=== PATIENT | female | born 1940 | race Caucasian/White ===

== ENCOUNTER → 2016-07-29 | Outpatient (REF) | payer MEDICARE ==
[2016-07-29 14:12] LABS: MICROSCOPIC INDICATED? MAN YES (NO)
[2016-07-29 14:13] LABS: BACTERIA, URINE NONE SEEN; HYALINE CAST, URINE NONE SEEN /lpf (0-1); MICROSCOPIC EXAM PERFORMED; SQUAMOUS EPITHELIAL CELL URINE SMALL AMOUNT /hpf (SMALL AMT); WBC, URINE NONE SEEN /hpf (0-3)
== END ==
LOC: M LAB REF 13:01
PROVIDERS: ATTEND Internal Medicine
DX: R31.9 Hematuria, unspecified (principal)

== ENCOUNTER → 2016-10-07 | Outpatient (CLI) | payer MEDICARE ==
--- NOTE | 2016-10-07 09:20 | REPMRS ---
Patient History The patient states she had a clinical breast exam in Patient is postmenopausal. Family history of colorectal cancer in mother at age 50 or over. Digital Woman Screen Mammo: October 07, 2016 - Exam #: [id number] Bilateral CC and MLO view(s) were taken. Technologist: Amber Strauss, Technologist Prior study comparison: September 03, 2015, digital woman screen mammo performed at [facility]. September 12, 2013, bilateral digital mammo screening bilat, performed at [facility]. FINDINGS: There are scattered fibroglandular densities. There has been no change in the appearance of the mammogram from the prior studies. There is a mild amount of residual fibroglandular tissue which is fairly symmetric. There is no interval development of dominant mass, architectural distortion, or clustered microcalcification suggestive of malignancy. ASSESSMENT: BI-RADS/ACR category 1 mammogram. Negative. Recommendation Routine screening mammogram in 1 year (for women over age 40). This mammogram was interpreted with the aid of an FDA-approved computer-aided dectection system. Electronically Signed By: Garcia Hill MD 10/07/16 0981
== END ==
LOC: M WHC 08:00
PROVIDERS: ATTEND Internal Medicine
DX: Z12.31 Encounter for screening mammogram for malignant neoplasm of breast (principal); Z78.0 Asymptomatic menopausal state

== ENCOUNTER 2017-01-24 09:16 | Outpatient (CLI) | payer MEDICARE ==
[~2017-01-24] VITALS: Ht 162.6 cm; Wt 72.6 kg
[~2017-01-24 09:16] MED LIST: ASPI1TAB PO; LISI-542 PO; PRAV20TA2 PO; SUPECAP24 PO; VITA1CAP7 PO
[2017-01-24] MEDS ORDERED: NS 1,000 ML IV ONE (09:30)
[2017-01-24] MEDS ORDERED: PROPOFOL 200 MG/20 ML VIAL As Ordered ONE (10:40)
--- NOTE | 2017-01-24 11:06 | ROOR ---
Patient Name: Tonya Akins Procedure Date: 01/24/2017 10:38 AM Date of : 1940 Age: 76 Room: [facility] Gender: Female Note Status: Finalized Procedure: Total Colonoscopy to cecum + Bx. Indications: Colon cancer screening in patient at increased risk: Colorectal cancer in mother Providers: Carson Lanier MD Referring MD: Hannah CHÁVEZ MD Requesting Provider: Medicines: Monitored Anesthesia Care Complications: No immediate complications. Procedure: Pre-Anesthesia Assessment: - The heart rate, respiratory rate, oxygen saturations, blood pressure, adequacy of pulmonary ventilation, and response to care were monitored throughout the procedure. The Colonoscope was introduced through the anus and advanced to the cecum, identified by appendiceal orifice and ileocecal valve. The colonoscopy was performed without difficulty. The patient tolerated the procedure well. The quality of the bowel preparation was excellent. Findings: The perianal and digital rectal examinations were normal. Non-bleeding internal hemorrhoids were found during retroflexion. The hemorrhoids were small and Grade I (internal hemorrhoids that do not prolapse). A localized area of mildly congested mucosa was found appendiceal orifice. Biopsies were taken with a cold forceps for histology. The exam was otherwise without abnormality on direct and retroflexion views. Impression: - Non-bleeding internal hemorrhoids. - Congested mucosa at the appendiceal orifice. Biopsied. - The examination was otherwise normal on direct and retroflexion views. - The exam was otherwise normal to the cecum. Recommendation: - Patient has a contact number available for emergencies. The signs and symptoms of potential delayed complications were discussed with the patient. Return to normal activities tomorrow. Written discharge instructions were provided to the patient. - High fiber diet. - Discharge patient to home. - Continue present medications. - Await pathology results. - Telephone GI clinic for pathology results in 1 week. - Repeat colonoscopy for symptoms only. - Return to referring physician. - Check Portal Online for Path Results.([email or web address] - The findings and recommendations were discussed with the patient's family. Carson Lanier MD Carson Lanier MD 01/24/2017 11:05:59 AM This report has been signed electronically. Number of Addenda: 0 Note Initiated On: 01/24/2017 10:38 AM Estimated Blood Loss: Estimated blood loss: none.
[2017-01-24 11:31] VITALS: BP 152/93
== END 2017-01-24 11:50 | disposition home or self-care (01) ==
LOC: M OPP 09:16
PROVIDERS: ATTEND Internal Medicine Gastroenterology
DX: Z12.11 Encounter for screening for malignant neoplasm of colon (principal); Z80.0 Family history of malignant neoplasm of digestive organs; K64.0 First degree hemorrhoids; K63.5 Polyp of colon; I25.10 Atherosclerotic heart disease of native coronary artery without angina pectoris; Z95.5 Presence of coronary angioplasty implant and graft; K57.30 Diverticulosis of large intestine without perforation or abscess without bleeding; M17.9 Osteoarthritis of knee, unspecified; Z79.82 Long term (current) use of aspirin; Z79.899 Other long term (current) drug therapy

== ENCOUNTER 2017-06-25 08:56 | Emergency (ER) | payer MEDICARE ==
[2017-06-25] MEDS ORDERED: MOXIFLOXACIN 400 MG TAB PO (09:45)
== END 2017-06-25 09:52 | disposition home or self-care (01) ==
LOC: M ED 08:56
DX: J20.9 Acute bronchitis, unspecified (principal); Z87.01 Personal history of pneumonia (recurrent); Z95.5 Presence of coronary angioplasty implant and graft; Z79.82 Long term (current) use of aspirin; Z79.899 Other long term (current) drug therapy
CPT/HCPCS: 71046

== ENCOUNTER → 2018-01-02 | Outpatient (CLI) | payer MEDICARE | LOC: M WHC 13:40 | DX: M85.9 Disorder of bone density and structure, unspecified (principal) | CPT/HCPCS: 77080 ==

== ENCOUNTER 2018-02-02 06:36 | Day surgery (SDC) | payer MEDICARE ==
[2018-02-02] MEDS ORDERED: fentaNYL 100 MCG/2 ML INJECTION (J3010) As Ordered (07:00)
[2018-02-02] MEDS ORDERED: ONDANSETRON 4MG/2ML VIAL (J2405) As Ordered (07:01)
[2018-02-02] MEDS ORDERED: MIDAZOLAM INJ 2 MG/2 ML VIAL (J2250) As Ordered (07:01)
[2018-02-02] MEDS: TROPICAMIDE 1% OPHTH SOLN 2ML OS (07:08)
[2018-02-02] MEDS: OFLOXACIN 0.3 % (OCUFLOX) OPTH SOL 5ML OS (07:08)
[2018-02-02] MEDS: PROPARACAINE 0.5% OPHTH SOL 15ML OS (07:08)
[2018-02-02] MEDS: PHENYLEPHRINE 2.5% OPHTH SOL 2ML OS (07:08)
[2018-02-02] MEDS: BALANCED SALT IRRIGATION SOLUTION 500ML BAG (FOR OR EYE MACHINE) As Ordered (07:55)
[2018-02-02] MEDS: POVIDONE-IODINE 5% OPHTH PREP SOL 30ML As Ordered (07:55)
[2018-02-02] MEDS: DUOVISC (0.50ML VISCOAT/0.55ML PROVISC) OPHTH KIT As Ordered (07:56)
[2018-02-02] MEDS: LIDOCAINE 0.75%/EPINEPHRINE 0.025% IN BSS 1ML SYR INTRACAMERAL (OR ONLY) As Ordered ×2 (07:56→08:02)
[2018-02-02] MEDS: CEFUROXIME 1MG/0.1ML INTRACAMERAL INJ As Ordered (07:56)
== END 2018-02-02 09:08 | disposition home or self-care (01) ==
LOC: M SDC 06:36
DX: H25.12 Age-related nuclear cataract, left eye (principal); I25.10 Atherosclerotic heart disease of native coronary artery without angina pectoris; Z98.61 Coronary angioplasty status; Z79.899 Other long term (current) drug therapy
CPT/HCPCS: 66984

== ENCOUNTER 2018-02-03 21:24 | Observation (INO) | payer MEDICARE ==
[2018-02-03] MEDS: NS 1,000 ML IV (22:34)
[2018-02-03] MEDS: ONDANSETRON 4MG/2ML VIAL (J2405) IV (22:34)
[2018-02-03] MEDS: MORPHINE 2 MG/ML 1ML SYRINGE (J2270) IV (22:35)
[2018-02-03 22:47] LABS: BASO % 0.3 % (0.0-1.0); HEMATOCRIT 39.9 % (36.0-47.0); HEMOGLOBIN 13.8 g/dl (12.0-15.5); IMMATURE GRANULOCYTE % 0.4 % (0-3.0); LYMPH # 0.9 10^3/uL (1.5-4.5); LYMPH % 8.7 % (24.0-44.0); MEAN CORPUSCULAR HEMOGLOBIN 29.5 pg (27.0-33.0); MEAN CORPUSCULAR HGB CONC 34.6 g/dl (32.0-36.5); MEAN CORPUSCULAR VOLUME 85.3 fl (80.0-96.0); MONO # 0.2 10^3/uL (0.0-0.8); MONO % 2.1 % (0.0-5.0); NEUTROPHILS # 9.5 10^3/uL (1.8-7.7); NEUTROPHILS % 88.5 % (36.0-66.0); PLATELET COUNT, AUTOMATED 154 10^3/uL (150-450); RED BLOOD COUNT 4.68 10^6/uL (4.00-5.40); RED CELL DISTRIBUTION WIDTH 12.5 % (11.5-14.5); WHITE BLOOD COUNT 10.7 10^3/uL (4.0-10.0)
[2018-02-03 23:15] LABS: INR 1.01; PROTHROMBIN TIME 13.4 SECONDS (12.1-14.4)
[2018-02-03 23:16] LABS: PARTIAL THROMBOPLASTIN TIME 28.7 SECONDS (25.4-37.6)
[2018-02-03 23:23] LABS: ALBUMIN 3.9 GM/DL (3.2-5.2); ALKALINE PHOSPHATASE 56 U/L (45-117); ALT/SGPT 16 U/L (12-78); ANION GAP 11 MEQ/L (8-16); AST/SGOT 16 U/L (7-37); BILIRUBIN,DIRECT 0.2 MG/DL (0.0-0.2); BILIRUBIN,TOTAL 0.6 MG/DL (0.2-1.0); BLOOD UREA NITROGEN 23 MG/DL (7-18); CALCIUM LEVEL 8.9 MG/DL (8.8-10.2); CARBON DIOXIDE LEVEL 22 MEQ/L (21-32); CHLORIDE LEVEL 107 MEQ/L (98-107); CK-MB VALUE MASS 1.8 NG/ML (<3.6); CPK CREATINE PHOSPHOKINASE 116 U/L (26-192); CREATININE FOR GFR 0.95 MG/DL (0.55-1.30); GLOMERULAR FILTRATION RATE > 60.0 (>39); GLUCOSE, FASTING 197 MG/DL (70-100); LIPASE 155 U/L (73-393); MB/CK RELATIVE INDEX 1.55 (< OR =4); POTASSIUM SERUM 3.9 MEQ/L (3.5-5.1); SODIUM LEVEL 140 MEQ/L (136-145); TOTAL PROTEIN 7.8 GM/DL (6.4-8.2); TROPONIN I < 0.02 NG/ML (< 0.10)
[2018-02-03] MEDS: METOCLOPRAMIDE INJ 10MG/2ML VIAL (J2765) IV (23:30)
[2018-02-04] MEDS: MORPHINE 2 MG/ML 1ML SYRINGE (J2270) IV (00:01)
[2018-02-04] MEDS ORDERED: ISOVUE-370 76% 100ML VIAL (Q9967) As Ordered (00:56)
[2018-02-04] MEDS ORDERED: PERCOCET 5MG/325MG TAB PO (01:30)
[2018-02-04] MEDS ORDERED: MORPHINE 4 MG/ML 1ML VIAL/SYRINGE (J2270) IV (01:30)
[2018-02-04] MEDS ORDERED: BISACODYL 5 MG TAB PO (01:30)
[2018-02-04] MEDS ORDERED: ONDANSETRON 4MG/2ML VIAL (J2405) IV (01:30)
[2018-02-04] MEDS: NS 1,000 ML IV ×2 (03:32→12:03)
[2018-02-04] MEDS: PANTOPRAZOLE 40MG INJ (PROTONIX) (C9113) IV ×2 (03:32→20:10)
[2018-02-04] MEDS: PRAVASTATIN 20 MG TAB PO ×2 (03:33→20:10)
[2018-02-04] MEDS: LISINOPRIL 5 MG TAB PO ×2 (03:33→20:12)
[2018-02-04] MEDS: VITAMIN D 1,000 INTERNATIONAL UNITS TABLET PO ×2 (03:34→20:10)
[2018-02-04] MEDS: HEPARIN SOD (PORCINE) 5000 UNITS/ML VIAL SC ×3 (06:26→21:40)
[2018-02-04] MEDS: ACETAMINOPHEN TAB 650MG DOSE (2X325MG) PO (06:39)
[2018-02-04] MEDS: prednisoLONE ACET 1% OPHTH SUSP 5ML OS ×2 (08:38→20:12)
[2018-02-04] MEDS: [UNRECOGNIZED DRUG - OTHER] OS ×2 (12:03→20:14)
[2018-02-04] MEDS: BESIVANCE 0.6% OS ×3 (12:03→20:12)
[2018-02-05] MEDS: HEPARIN SOD (PORCINE) 5000 UNITS/ML VIAL SC (05:47)
== END 2018-02-05 09:05 | disposition home or self-care (01) ==
LOC: M ED INP 21:25 → M MSPAV 02-04 03:02 → M ED 21:24
DX: K52.9 Noninfective gastroenteritis and colitis, unspecified (principal); E86.0 Dehydration; K62.5 Hemorrhage of anus and rectum; K57.90 Diverticulosis of intestine, part unspecified, without perforation or abscess without bleeding; I10 Essential (primary) hypertension; E78.4 Other hyperlipidemia; Z79.899 Other long term (current) drug therapy; Z79.52 Long term (current) use of systemic steroids
CPT/HCPCS: C9113

== ENCOUNTER 2018-02-09 12:41 | Day surgery (SDC) | payer MEDICARE ==
[~2018-02-09 12:41] MED LIST changes: -ASPI1TAB PO; -LISI-542 PO; +OFLOXACIN 0.3 % (OCUFLOX) OPTH SOL 5ML OD; +PHENYLEPHRINE 2.5% OPHTH SOL 2ML OD; -PRAV20TA2 PO; +PROPARACAINE 0.5% OPHTH SOL 15ML OD; -SUPECAP24 PO; +TROPICAMIDE 1% OPHTH SOLN 2ML OD; -VITA1CAP7 PO
[2018-02-09] MEDS: POVIDONE-IODINE 5% OPHTH PREP SOL 30ML As Ordered (14:56)
[2018-02-09] MEDS: BALANCED SALT IRRIGATION SOLUTION 500ML BAG (FOR OR EYE MACHINE) As Ordered (15:07)
[2018-02-09] MEDS: DUOVISC (0.50ML VISCOAT/0.55ML PROVISC) OPHTH KIT As Ordered (15:08)
[2018-02-09] MEDS: CEFUROXIME 1MG/0.1ML INTRACAMERAL INJ As Ordered (15:08)
[2018-02-09] MEDS: LIDOCAINE 0.75%/EPINEPHRINE 0.025% IN BSS 1ML SYR INTRACAMERAL (OR ONLY) As Ordered (15:08)
[2018-02-09] MEDS ORDERED: fentaNYL 100 MCG/2 ML INJECTION (J3010) As Ordered (15:36)
[2018-02-09] MEDS ORDERED: MIDAZOLAM INJ 2 MG/2 ML VIAL (J2250) As Ordered (15:36)
== END 2018-02-09 16:10 | disposition home or self-care (01) ==
LOC: M SDC 16:10
DX: H25.11 Age-related nuclear cataract, right eye (principal); I25.10 Atherosclerotic heart disease of native coronary artery without angina pectoris; Z98.61 Coronary angioplasty status; Z79.899 Other long term (current) drug therapy
CPT/HCPCS: 66984

== ENCOUNTER → 2018-10-25 | Outpatient (CLI) | payer MEDICARE ==
[~2018-10-25] MED LIST changes: +ASPI81TA26 PO; +AVEL1TAB3 PO; +BESI0.6S OS; +BROM0.07 OS; +D-3-50003 PO; +LISI-542 PO; -OFLOXACIN 0.3 % (OCUFLOX) OPTH SOL 5ML OD; -PHENYLEPHRINE 2.5% OPHTH SOL 2ML OD; +PRAV20TA2 PO; +PREDOPD OS; -PROPARACAINE 0.5% OPHTH SOL 15ML OD; +SUPECAP24 PO; -TROPICAMIDE 1% OPHTH SOLN 2ML OD
--- NOTE | 2018-10-25 10:00 | REPMRS ---
Patient History The patient states she had a clinical breast exam in October 2018. Family history of colorectal cancer at age 50 or over in mother. Patient has lost 13 pounds intentionally. 3D TOMOSYNTHESIS WAS PERFORMED. Digital Mammo Screening Bilat: October 25, 2018 - Exam #: [id number] Bilateral CC and MLO view(s) were taken. Technologist: Gaby Thornton, Technologist Prior study comparison: October 07, 2016, digital woman screen mammo, performed at [facility]. September 03, 2015, digital woman screen mammo, performed at [facility]. FINDINGS: There are scattered fibroglandular densities. There has been no change in the appearance of the mammogram from the prior studies. There is a mild amount of residual fibroglandular tissue which is fairly symmetric. There is no interval development of dominant mass, architectural distortion, or clustered microcalcification suggestive of malignancy. Assessment: BI-RADS/ACR category 1 mammogram. Negative Mammogram. Recommendation Routine screening mammogram in 1 year (for women over age 40). This mammogram was interpreted with the aid of an FDA-approved computer-aided dectection system. Electronically Signed By: Garcia Hill MD 10/25/18 0959
== END ==
LOC: M RAD 08:53
PROVIDERS: ATTEND Internal Medicine
DX: Z12.31 Encounter for screening mammogram for malignant neoplasm of breast (principal); Z80.0 Family history of malignant neoplasm of digestive organs

== ENCOUNTER → 2020-04-18 | Outpatient (CLI) | payer MEDICARE ==
--- NOTE | 2020-04-18 11:17 | REPMRS ---
Patient History The patient states she had a clinical breast exam in 2019. Family history of colorectal cancer at age 50 or over in mother. Digital Woman Screen Mammo: April 18, 2020 - Exam #: [id number] Bilateral CC and MLO view(s) were taken. Technologist: Gaby Thornton, Technologist Prior study comparison: October 25, 2018, bilateral digital mammo screening bilat, performed at [facility]. October 07, 2016, digital woman screen mammo performed at [facility]. September 03, 2015, digital woman screen mammo performed at [facility]. FINDINGS: There are scattered fibroglandular densities. The Volpara volumetric breast density category is:B. There has been no change in the appearance of the mammogram from the prior studies. There is a mild amount of scattered fibroglandular density which is fairly symmetric. There is no interval development of dominant mass, architectural distortion, or grouped microcalcification suggestive of malignancy. 3-D tomosynthesis shows no additional findings. Assessment: BI-RADS/ACR category 1 mammogram. Negative Mammogram. Recommendation Routine screening mammogram of both breasts in 1 year (for women over age 40). This patient's Lifetime Breast Cancer Risk is estimated at 1.9 %. This mammogram was interpreted with the aid of an FDA-approved computer-aided dectection system. Electronically Signed By: Per Yang MD 04/18/20 [id number]
--- NOTE | 2020-04-18 12:46 | DEXA ---
INDICATION: M83.0 AGE REL OSTEOPOROSIS. COMPARISON: The most recent prior study is dated January 02, 2018. The most remote prior studies dated February 01, 2002.. TECHNIQUE: Bone density was measured using dual-energy x-ray absorptionmetry (DEXA). FINDINGS: AP SPINE L1-L4 BMD 1.10 g/cm2 Young Adult T-Score -0.9 Age Matched Z-Score 0.9. LT FEMUR, TOTAL BMD 0.729 g/cm2 Young Adult T-Score -2.2 Age Matched Z-Score -0.4. LT NECK BMD 0.767 g/cm2 Young Adult T-Score -1.9 Age Matched Z-Score 0.1. RT FEMUR, TOTAL BMD 0.671 g/cm2 Young Adult T-Score -2.7 Age Matched Z-Score -0.8. RT NECK BMD 0.714 g/cm2 Young Adult T-Score -2.3 Age Matched Z-Score -0.3. IMPRESSION: There is normal bone density of the spine. There is discogenic and facet sclerosis in the lumbar spine. There is low bone density of the left hip. There is osteoporosis of the right hip. The density of the spine has increased 5.4% since the initial exam on February 01, 2002. The density of the spine decrease 0.8% since most recent exam on January 02, 2018. The density of the left hip has decreased 4.1% since initial exam on February 01, 2002. The density of the left hip has decreased 5.3% since most recent exam on January 02, 2018. The density of the right hip has decreased 13.2% since the initial exam on February 01, 2002. The density of the right hip has decrease 6.4% since the most recent exam on January 02, 2018. FOLLOW-UP: Recommendation for the next bone density exam: 2 years. <Electronically signed by Per Yang > 04/18/20 [id number]
== END ==
LOC: M WHC 09:28
PROVIDERS: ATTEND Internal Medicine
DX: Z12.31 Encounter for screening mammogram for malignant neoplasm of breast (principal); M81.0 Age-related osteoporosis without current pathological fracture; Z80.0 Family history of malignant neoplasm of digestive organs; M85.852 Other specified disorders of bone density and structure, left thigh

== ENCOUNTER 2020-08-28 12:50 | Emergency (ER) | payer MEDICARE ==
[~2020-08-28] VITALS: Ht 154.9 cm; Wt 80.0 kg
[~2020-08-28 12:50] MED LIST changes: -LISI-542 PO; +LISI-898 PO
[2020-08-28] MEDS ORDERED: THERTAB52 PO (13:16)
[2020-08-28] MEDS ORDERED: NS 1,000 ML IV ONE (14:20)
[2020-08-28 14:39] LABS: BASO # 0.1 10^3/uL (0.0-0.2); BASO % 0.8 % (0.0-1.0); EOS # 0.1 10^3/uL (0.0-0.5); EOS % 1.4 % (0.0-3.0); HEMATOCRIT 37.7 % (36.0-47.0); HEMOGLOBIN 12.8 g/dl (12.0-15.5); LYMPH # 1.9 10^3/uL (1.5-5.0); LYMPH % 21.1 % (24.0-44.0); MEAN CORPUSCULAR HEMOGLOBIN 29.7 pg (27.0-33.0); MEAN CORPUSCULAR VOLUME 87.5 fl (80.0-96.0); MONO # 0.9 10^3/uL (0.0-0.8); MONO % 9.3 % (2.0-8.0); NEUTROPHILS # 6.1 10^3/uL (1.5-8.5); NEUTROPHILS % 67.1 % (36.0-66.0); PLATELET COUNT, AUTOMATED 165 10^3/uL (150-450); RED BLOOD COUNT 4.31 10^6/uL (4.00-5.40); WHITE BLOOD COUNT 9.1 10^3/uL (4.0-10.0)
[2020-08-28] MEDS ORDERED: ISOVUE-370 76% 100ML VIAL As Ordered ONE (14:46)
[2020-08-28 14:57] LABS: ERYTHROCYTE SEDIMENTATION RATE 12 mm/hr (0-30)
--- NOTE | 2020-08-28 15:10 | REP ---
INDICATION: new onset frontal headache. COMPARISON: Comparison CT study November 07, 2013.. TECHNIQUE: Helical scanning is acquired. 5 mm axial images were reformatted. Coronal MPR images were generated. FINDINGS: Bone window settings demonstrate an intact bony calvarium. There is no evidence of skull fracture or incidental bony calvarial lesion. The visualized paranasal sinuses appear clear. No intraorbital abnormality is seen. On soft tissue window setting images; the lateral, third, and fourth ventricles are normal in size and position. Hill-white differentiation pattern is normal above and below the tentorium. There are is no evidence of intracranial hemorrhage. No mass, edema, infarction, or midline shift is seen. No extra-axial fluid collection is appreciated. Patient is edentulous. There is mild generalized volume loss unchanged. Vascular calcification is again seen in the distal internal carotid arteries. IMPRESSION: Vascular calcification and minimal generalized volume loss. No acute intracranial abnormality.. <Electronically signed by Per Yang > 08/28/20 [id number]
[2020-08-28 15:11] LABS: ALBUMIN 4.3 GM/DL (3.2-5.2); ALT/SGPT 19 U/L (12-78); BILIRUBIN,DIRECT 0.2 MG/DL (0.0-0.2); BILIRUBIN,TOTAL 0.5 MG/DL (0.2-1.0); C REACTIVE PROTEIN QUANTITATIV < 0.30 MG/DL (0.00-0.30); CK-MB VALUE MASS 2.1 NG/ML (<3.6); CPK CREATINE PHOSPHOKINASE 101 U/L (26-192); MAGNESIUM LEVEL 2.4 MG/DL (1.8-2.4); MB/CK RELATIVE INDEX 2.08 (< OR =4); TOTAL PROTEIN 7.6 GM/DL (6.4-8.2); TROPONIN I < 0.02 NG/ML (< 0.10)
--- NOTE | 2020-08-28 15:13 | REP ---
INDICATION: pain under chin/in neck ? abscess. COMPARISON: None. TECHNIQUE: 75 mL of intravenous Isovue 370 is administered. Helical scanning is acquired. 3 mm axial images re-formatted. Coronal and sagittal MPR images are provided. FINDINGS: Digital preliminary senior director radiograph demonstrates that the maxilla is edentulous. The visualized paranasal sinuses are clear. Tonsillar and peritonsillar soft tissues are unremarkable. Parotid and submandibular glands are normal and symmetric. There is no evidence of suprahyoid or infrahyoid adenopathy or mass. There is some vascular calcification bilaterally. No other vascular abnormality is seen. No mandibular or maxillary bony destructive lesion is seen. Orbital margins are intact as visualized. There is no evidence of abscess in the floor of the mouth or perimandibular region on either side. No bony erosive change or destructive lesion is seen. 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 IMPRESSION: There is no evidence of soft tissue abscess in the neck. No mass or adenopathy is seen. No acute abnormality. <Electronically signed by Per Yang > 08/28/20 0279
[2020-08-28 15:29] VITALS: BP 163/72
--- NOTE | 2020-08-29 01:57 | ECGEPIP ---
[facility] - ED Test Date: 2020-08-28 Pat Name: ELIF TONY Department: Room: - Gender: Female Senior Account Representative: ANDRE : 1940 Requested By: NIKC BURKETT PA-C Order Number: [id number] Reading MD: Mina Mendoza Measurements Intervals [place] Rate: 61 P: -11 DE: 146 QRS: -12 QRSD: 82 T: 14 QT: 440 QTc: 442 Interpretive Statements Normal sinus rhythm Minimal voltage criteria for LVH, may be normal variant ( R in aVL ) INCOMPLETE RIGHT BUNDLE BRANCH BLOCK POOR R WAVE PROGRESSION SIMILAR TO 02/03/18 Electronically Signed on 08-29-2020 1:56:41 EDT by Mina Mendoza
== END 2020-08-28 15:40 | disposition home or self-care (01) ==
LOC: M ED 12:50
DX: I10 Essential (primary) hypertension (principal); R51.9 Headache, unspecified; M54.2 Cervicalgia; I45.10 Unspecified right bundle-branch block; E78.5 Hyperlipidemia, unspecified; R42 Dizziness and giddiness; Z95.5 Presence of coronary angioplasty implant and graft; Z86.69 Personal history of other diseases of the nervous system and sense organs; Z79.899 Other long term (current) drug therapy
CPT/HCPCS: 70450; 70491; 80047; 80076; 82550; 82553; 83735; 84484; 85025; 85652; 86140; 93005; 96360; 99284; Q9967

== ENCOUNTER → 2020-09-11 | Outpatient (CLI) | payer MEDICARE ==
[~2020-09-11] MED LIST changes: +THERTAB52 PO
--- NOTE | 2020-09-11 10:49 | REP ---
INDICATION: SHORTNESS OF BREATH. COMPARISON: PA and lateral chest dated 06/25/2017. TECHNIQUE: PA and lateral chest, three views, 2 PA and single lateral views. FINDINGS: The lung pryor are clear. Cardiac size is normal. The radha, mediastinum and skeletal structures are unremarkable, except for thoracic scoliosis convex right, unchanged.. IMPRESSION: Essentially negative PA and lateral chest There is no interval change. <Electronically signed by Garcia Sykes > 09/11/20 1048
== END ==
LOC: M WUC 10:20
PROVIDERS: ATTEND Internal Medicine
DX: R06.02 Shortness of breath (principal)

== ENCOUNTER → 2021-12-17 | Outpatient (REF) | payer MEDICARE ==
[~2021-12-17] MED LIST changes: -LISI-898 PO; +LISI5TAB11 PO
[2021-12-17 17:08] LABS: TOTAL PROTEIN 7.2 GM/DL (6.4-8.2)
== END ==
LOC: M LAB REF 16:29
PROVIDERS: ATTEND Internal Medicine
DX: R42 Dizziness and giddiness (principal); E78.00 Pure hypercholesterolemia, unspecified

== ENCOUNTER → 2021-12-31 | Outpatient (CLI) | payer MEDICARE | LOC: M WUC 13:07 | PROVIDERS: ATTEND Internal Medicine | DX: R20.0 Anesthesia of skin (principal); M47.896 Other spondylosis, lumbar region; M41.9 Scoliosis, unspecified ==

== ENCOUNTER → 2022-04-26 | Outpatient (CLI) | payer MEDICARE | LOC: M WHC 11:51 | PROVIDERS: ATTEND Internal Medicine | DX: Z12.31 Encounter for screening mammogram for malignant neoplasm of breast (principal); Z13.820 Encounter for screening for osteoporosis; M85.852 Other specified disorders of bone density and structure, left thigh; M81.0 Age-related osteoporosis without current pathological fracture ==

== ENCOUNTER → 2023-03-15 | Outpatient (REF) | payer MEDICARE | LOC: M LAB REF 16:12 | PROVIDERS: ATTEND Internal Medicine | DX: D64.9 Anemia, unspecified (principal) ==

== ENCOUNTER → 2023-07-21 | Outpatient (CLI) | payer MEDICARE | LOC: M RAD 09:44 | PROVIDERS: ATTEND Internal Medicine | DX: R05.9 Cough, unspecified (principal) ==

== ENCOUNTER → 2023-10-03 | Outpatient (CLI) | payer MEDICARE | LOC: M RAD 08:38 | PROVIDERS: ATTEND Internal Medicine | DX: M47.816 Spondylosis without myelopathy or radiculopathy, lumbar region (principal) ==

== ENCOUNTER → 2023-10-18 | Outpatient (REF) | payer MEDICARE ==
[2023-10-18 20:04] LABS: HEMATOCRIT 35.1 % (36.0-47.0); HEMOGLOBIN 11.9 g/dl (12.0-15.5); MEAN CORPUSCULAR HEMOGLOBIN 29.9 pg (27.0-33.0); MEAN CORPUSCULAR HGB CONC 33.9 g/dl (32.0-36.5); MEAN CORPUSCULAR VOLUME 88.2 fl (80.0-96.0); PLATELET COUNT, AUTOMATED 182 10^3/uL (150-450); RED BLOOD COUNT 3.98 10^6/uL (4.00-5.40)
[2023-10-18 20:17] LABS: BLOOD UREA NITROGEN 14 MG/DL (9-23); CALCIUM LEVEL 8.8 MG/DL (8.3-10.6); CARBON DIOXIDE LEVEL 26 MMOL/L (20-31); CHLORIDE LEVEL 110 MMOL/L (98-107); CREATININE FOR GFR 0.75 MG/DL (0.55-1.30); GLOMERULAR FILTRATION RATE > 60.0 (>32); GLUCOSE, FASTING 72 MG/DL (74-106); POTASSIUM SERUM 3.7 MMOL/L (3.5-5.1); SODIUM LEVEL 142 MMOL/L (136-145)
== END ==
LOC: M LAB REF 19:42
PROVIDERS: ATTEND Physician Assistant
DX: I25.10 Atherosclerotic heart disease of native coronary artery without angina pectoris (principal); R60.0 Localized edema

== ENCOUNTER → 2023-11-01 | Outpatient (CLI) | payer MEDICARE | LOC: M PLAIMG 08:38 | PROVIDERS: ATTEND Physician Assistant | DX: R00.1 Bradycardia, unspecified (principal); R60.0 Localized edema ==

== ENCOUNTER → 2024-07-11 | Outpatient (CLI) | payer MEDICARE | LOC: M WHC 09:48 | PROVIDERS: ATTEND Internal Medicine | DX: Z13.820 Encounter for screening for osteoporosis (principal); M85.88 Other specified disorders of bone density and structure, other site; M85.851 Other specified disorders of bone density and structure, right thigh; M85.852 Other specified disorders of bone density and structure, left thigh ==

== ENCOUNTER 2024-08-10 08:11 | Observation (INO) | payer MEDICARE ==
[~2024-08-10] VITALS: Ht 154.9 cm; Wt 80.5 kg
[2024-08-10] MEDS: NS (Normal Saline) 0.9% 1,000 ML IV SCH ×2 (08:39→17:47)
[2024-08-10 08:50] LABS: BASO # 0.1 10^3/uL (0.0-0.2); BASO % 0.7 % (0.0-1.0); EOS # 0.1 10^3/uL (0.0-0.5); EOS % 0.7 % (0.0-3.0); HEMATOCRIT 36.9 % (36.0-47.0); HEMOGLOBIN 12.8 g/dl (12.0-15.5); LYMPH # 1.1 10^3/uL (1.5-5.0); LYMPH % 12.3 % (24.0-44.0); MEAN CORPUSCULAR HEMOGLOBIN 29.6 pg (27.0-33.0); MEAN CORPUSCULAR HGB CONC 34.7 g/dl (32.0-36.5); MEAN CORPUSCULAR VOLUME 85.2 fl (80.0-96.0); MONO # 0.8 10^3/uL (0.0-0.8); MONO % 8.8 % (2.0-8.0); NEUTROPHILS # 6.9 10^3/uL (1.5-8.5); NEUTROPHILS % 77.1 % (36.0-66.0); PLATELET COUNT, AUTOMATED 142 10^3/uL (150-450); RED BLOOD COUNT 4.33 10^6/uL (4.00-5.40); WHITE BLOOD COUNT 8.9 10^3/uL (4.0-10.0)
[2024-08-10 09:11] LABS: LIPASE 37 U/L (12-53)
[2024-08-10 09:13] LABS: ALBUMIN 3.8 G/DL (3.2-5.2); ALKALINE PHOSPHATASE 44 U/L (35-104); ALT/SGPT 13 U/L (7.0-40); AST/SGOT 16 U/L (<34); BILIRUBIN,DIRECT 0.2 MG/DL (<0.4); BILIRUBIN,TOTAL 0.6 MG/DL (0.3-1.2); BLOOD UREA NITROGEN 16 MG/DL (9-23); CALCIUM LEVEL 8.7 MG/DL (8.3-10.6); CARBON DIOXIDE LEVEL 22 MMOL/L (20-31); CHLORIDE LEVEL 109 MMOL/L (98-107); CREATININE FOR GFR 0.72 MG/DL (0.55-1.30); GLOMERULAR FILTRATION RATE > 60.0 (>32); GLUCOSE, FASTING 164 MG/DL (74-106); POTASSIUM SERUM 4.3 MMOL/L (3.5-5.1); SODIUM LEVEL 142 MMOL/L (136-145); TOTAL PROTEIN 7.1 G/DL (5.7-8.2)
[2024-08-10] MEDS: PANTOPRAZOLE 40MG VIAL IV ONE (09:38)
[2024-08-10] MEDS: SUCRALFATE SUSP 1GM/10ML UD PO ONE (09:38)
[2024-08-10] MEDS: MAALOX 30 ML SUSP *UDC PO ONE (09:38)
[2024-08-10] MEDS: LIDOCAINE VISCOUS 2% SOLN 15ML UDC PO ONE (09:38)
[2024-08-10] MEDS ORDERED: ISOVUE-370 76% 100ML VIAL As Ordered ONE (10:25)
[2024-08-10] MEDS ORDERED: LISI10TA22 PO ×2 (12:41→13:15)
[2024-08-10] MEDS: ACETAMINOPHEN 325 MG TAB PO ONE (12:47)
[2024-08-10] MEDS ORDERED: ACET-683 PO (13:15)
[2024-08-10] MEDS ORDERED: D3 S1CAP3 PO (13:15)
[2024-08-10] MEDS ORDERED: HOME MED LIST COMPLETE! XX SCH (13:15)
[2024-08-10 15:39] VITALS: BP 138/77; TEMP 97.7
[2024-08-10] MEDS ORDERED: ACETAMINOPHEN 500 MG TAB PO PRN (17:10)
[2024-08-10] MEDS ORDERED: MECLIZINE 25 MG TABLET PO PRN (17:15)
[2024-08-10] MEDS: ISOSORBIDE DIN. (ISORDIL) 20 MG TAB PO ONE (17:45)
[2024-08-10 20:15] VITALS: BP 149/86; TEMP 98.1; O2SAT 98
[2024-08-10] MEDS: PRAVASTATIN 20 MG TAB PO SCH (20:25)
[2024-08-11 04:00] VITALS: BP 131/70; TEMP 97.9; O2SAT 97
[2024-08-11 09:26] VITALS: BP 132/73
[2024-08-11] MEDS: ISOSORBIDE DIN. (ISORDIL) 20 MG TAB PO SCH (09:26)
[2024-08-11] MEDS ORDERED: TALK1KIT MC (11:44)
[2024-08-11 12:00] VITALS: BP 129/76; TEMP 97.7; O2SAT 96
== END 2024-08-11 14:20 | disposition home health service (06) ==
LOC: EDBD 08:11 → M ED 08:11 → M ED INP 08:12 → M MSPAV 15:51
PROVIDERS: ADMIT General Practice; ATTEND General Practice
DX: H81.399 Other peripheral vertigo, unspecified ear (principal); R11.2 Nausea with vomiting, unspecified; R19.7 Diarrhea, unspecified; R91.1 Solitary pulmonary nodule; J98.19 Other pulmonary collapse; I25.10 Atherosclerotic heart disease of native coronary artery without angina pectoris; Z98.61 Coronary angioplasty status; R19.5 Other fecal abnormalities; K57.30 Diverticulosis of large intestine without perforation or abscess without bleeding; I10 Essential (primary) hypertension; I50.30 Unspecified diastolic (congestive) heart failure; I35.1 Nonrheumatic aortic (valve) insufficiency; K63.5 Polyp of colon; Z79.899 Other long term (current) drug therapy
CPT/HCPCS: 70551; 71275; 74177; 80048; 80076; 83690; 85025; 87486; 87507; 87581; 87633; 87798; 93005; 93041; 96360; 96361; 97161; 97165; 97530; 99285; G0378; J2470; Q9967

== ENCOUNTER → 2025-05-20 | Outpatient (CLI) | payer MEDICARE ==
[~2025-05-20] MED LIST changes: +ACET-683 PO; +D3 S1CAP3 PO; +LISI10TA22 PO; -PRAV20TA2 PO; +PRAV20TA78 PO; +TALK1KIT MC
== END ==
LOC: M RAD 10:24
PROVIDERS: ATTEND Internal Medicine
DX: R91.1 Solitary pulmonary nodule (principal)